=== PATIENT | female | born 1985 | race Caucasian/White ===

== ENCOUNTER → 2018-10-22 | Outpatient (CLI) | payer BC ==
[~2018-10-22] MED LIST: HYDR1CAP2 PO; HYDR1TAB PO; HYOS0.1216 PO; NAPR-243 PO; OXYC-12 PO; PHEN37.582; TRM50T PO
--- NOTE | 2018-10-22 12:53 | Diagnostic Imaging Report ---
PROCEDURE: US Gallbladder. TECHNIQUE: Multiple real-time grayscale images were obtained over the right upper quadrant in various projections. INDICATION: Right upper quadrant pain. Liver parenchyma is homogeneous with normal echotexture. Portal vein is patent with hepatopetal flow. Hepatic veins are patent. Right kidney measures 9.8 cm length and appears normal. Common duct did not appear to be dilated. Pancreas is obscured. There is no ascites. IMPRESSION: 5 mm polyp in the gallbladder. There is no wall thickening. Dictated by: Dictated on workstation # [id number]
== END ==
LOC: RAD 11:59
PROVIDERS: ATTEND Nurse Practitioner Family
DX: K81.9 Cholecystitis, unspecified (principal)
CPT/HCPCS: 76705

== ENCOUNTER 2018-10-26 17:37 | Emergency (ER) | payer BC ==
[~2018-10-26] VITALS: Ht 160 cm; Wt 77.1 kg
--- NOTE | 2018-10-26 17:57 | ED Abdominal Pain ---
General Chief Complaint: Abdominal/GI Problems Stated Complaint: R SIDED ABD PAIN Nursing Triage Note: pt arrives pov with c/o RUQ pain. pt was seen in [facility] thursday and had an ultrasound of gallbladder et was told to follow up with surgeon on the 02 of november. States a mass was found on her gallbladder. Pain is increasing and radaiting to side and shoulder. Eating irriates pain. Sepsis Screen: No Definite Risk Source of Information: Patient Exam Limitations: No Limitations History of Present Illness Date Seen by Provider: Oct 26, 2018 Time Seen by Provider: 17:55 Initial Comments To ER with right upper quadrant abdominal pain. She was seen at [facility] for this last week, had a bladder ultrasound showed a 5 mm polyp. She's had constant pain but this pain became worse about 2 days ago after eating salad with associated nausea. She is scheduled to see Dr. Farr on November 02. No fevers or chills. Timing/Duration: 1-2 Days Severity/Quality: Moderate Radiation: No Radiation Activities at Onset: None Associated Symptoms: Nausea/Vomiting Allergies and Home Medications Allergies Coded Allergies: Penicillins (Unverified Allergy, Mild, HIVES, 08/31/09) Home Medications Hyoscyamine Sulfate 0.125 Mg Tab, 1 EACH PO Q4HR Prescribed by: NELSON LINK on 10/12/14 1610 Patient Home Medication List Home Medication List Reviewed: Yes Review of Systems Review of Systems Constitutional: see HPI EENTM: No Symptoms Reported Respiratory: No Symptoms Reported Cardiovascular: No Symptoms Reported Gastrointestinal: See HPI, Abdominal Pain; Denies Constipated, Denies Diarrhea ; Nausea Genitourinary: No Symptoms Reported Musculoskeletal: no symptoms reported Skin: no symptoms reported Psychiatric/Neurological: No Symptoms Reported Endocrine: No Symptoms Reported Hematologic/Lymphatic: No Symptoms Reported (that with slight Thursday night) Past Yxzlwfd-Kjprki-Wocpsd Hx Patient Social History Recent Foreign Travel: No Contact w/Someone Who Travel: No Recent Infectious Disease Expo: No Past Medical History : No (on period now, tubal) Reproductive Disorders: No Physical Exam Vital Signs Vital Signs - First Documented 10/26/18 17:43 Temp 98.7 Pulse 86 Resp 18 B/P (MAP) 141/98 (112) Pulse Ox 100 O2 Delivery Room Air Capillary Refill : Less Than 3 Seconds Height/Weight/BMI Height: 5'3.00" Weight: 170lbs. oz. 77.047933km; BMI Method:Stated General Appearance: WD/WN, no apparent distress HEENT: PERRL/EOMI, normal ENT inspection Respiratory: no respiratory distress, no accessory muscle use Gastrointestinal: normal bowel sounds, soft, tenderness Extremities: normal range of motion, non-tender Neurologic/Psychiatric: alert, normal mood/affect, oriented x 3 Skin: normal color, warm/dry Progress/Results/Core Measures Results/Orders Lab Results Laboratory Tests Test 10/26/18 17:54 10/26/18 18:01 Range/Units White Blood Count 11.7 H 4.3-11.0 10^3/uL Red Blood Count 4.71 4.35-5.85 10^6/uL Hemoglobin 13.0 11.5-16.0 G/DL Hematocrit 39 35-52 % Mean Corpuscular Volume 82 80-99 FL Mean Corpuscular Hemoglobin 28 25-34 PG Mean Corpuscular Hemoglobin Concent 34 32-36 G/DL Red Cell Distribution Width 14.4 10.0-14.5 % Platelet Count 358 130-400 10^3/uL Mean Platelet Volume 9.5 7.4-10.4 FL Neutrophils (%) (Auto) 59 42-75 % Lymphocytes (%) (Auto) 29 12-44 % Monocytes (%) (Auto) 6 0-12 % Eosinophils (%) (Auto) 6 0-10 % Basophils (%) (Auto) 0 0-10 % Neutrophils # (Auto) 7.0 1.8-7.8 X 10^3 Lymphocytes # (Auto) 3.4 1.0-4.0 X 10^3 Monocytes # (Auto) 0.7 0.0-1.0 X 10^3 Eosinophils # (Auto) 0.7 H 0.0-0.3 10^3/uL Basophils # (Auto) 0.0 0.0-0.1 10^3/uL Sodium Level 142 135-145 MMOL/L Potassium Level 3.8 3.6-5.0 MMOL/L Chloride Level 109 H 98-107 MMOL/L Carbon Dioxide Level 22 21-32 MMOL/L Anion Gap 11 5-14 MMOL/L Blood Urea Nitrogen 8 7-18 MG/DL Creatinine 0.73 0.60-1.30 MG/DL Estimat Glomerular Filtration Rate > 60 BUN/Creatinine Ratio 11 Glucose Level 94 70-105 MG/DL Calcium Level 9.0 8.5-10.1 MG/DL Corrected Calcium 8.8 8.5-10.1 MG/DL Total Bilirubin 0.2 0.1-1.0 MG/DL Aspartate Amino Transf (AST/SGOT) 14 5-34 U/L Alanine Aminotransferase (ALT/SGPT) 20 0-55 U/L Alkaline Phosphatase 90 40-136 U/L Total Protein 7.3 6.4-8.2 GM/DL Albumin 4.3 3.2-4.5 GM/DL Lipase 23 8-78 U/L Urine Color YELLOW Urine Clarity SLIGHTLY CLOUDY Urine pH 7 5-9 Urine Specific Webb 1.005 L 1.016-1.022 Urine Protein NEGATIVE NEGATIVE Urine Glucose (UA) NEGATIVE NEGATIVE Urine Ketones NEGATIVE NEGATIVE Urine Nitrite NEGATIVE NEGATIVE Urine Bilirubin NEGATIVE NEGATIVE Urine Urobilinogen NORMAL NORMAL MG/DL Urine Leukocyte Esterase 2+ H NEGATIVE Urine RBC (Auto) 5+ H NEGATIVE Urine RBC 0-2 /HPF Urine WBC 5-10 H /HPF Urine Squamous Epithelial Cells 5-10 /HPF Urine Crystals NONE /LPF Urine Bacteria FEW H /HPF Urine Casts NONE /LPF Urine Mucus NEGATIVE /LPF Urine Culture Indicated YES My Orders Orders - DOLLY HERNANDEZ APRN Cbc With Automated Diff (10/26/18 17:50) Comprehensive Metabolic Panel (10/26/18 17:50) Ua Culture If Indicated (10/26/18 17:50) Urine Bedside (10/26/18 17:50) Lipase (10/26/18 17:50) Iv Heplock-Insert (Order) (10/26/18 17:50) Ketorolac Injection (Toradol Injection) (10/26/18 18:00) Fentanyl Injection (Sublimaze Injection (10/26/18 18:00) Ondansetron Injection (Zofran Injectio (10/26/18 18:00) Urine Culture (10/26/18 18:01) Medications Given in ED Current Medications Medications Dose Ordered Sig/Mary Route Start Time Stop Time Status Last Admin Dose Admin Fentanyl Citrate 50 mcg ONCE ONCE IVP 10/26/18 18:00 10/26/18 18:01 DC 10/26/18 18:06 50 MCG Ketorolac Tromethamine 15 mg ONCE ONCE IVP 10/26/18 18:00 10/26/18 18:01 DC 10/26/18 18:07 15 MG Ondansetron HCl 4 mg ONCE ONCE IVP 10/26/18 18:00 10/26/18 18:01 DC 10/26/18 18:06 4 MG Vital Signs/I&O 10/26/18 17:43 Temp 98.7 Pulse 86 Resp 18 B/P (MAP) 141/98 (112) Pulse Ox 100 O2 Delivery Room Air Blood Pressure Mean: 112 Departure Communication (Admissions) I spoke with Dr. Farr, plan to have patient on clear liquids only, pain medication, Levaquin for 6 days, see his office tomorrow. She should show up at 2 PM and he'll squeeze her into the clinic. Impression Primary Impression: Right upper quadrant abdominal pain Disposition: HOME, SELF-CARE Condition: Stable Departure-Patient Inst. Decision time for Depature: 17:57 Referrals: [facility] (PCP) Primary Care Physician GUTIERREZ JARAMILLO (Family) Primary Care Physician IRMA FARR DO Patient Instructions: No Instuctions Given Add. Discharge Instructions: 1. Clear liquids only for the next 2-3 days. No greasy spicy or fatty foods. A medication as needed. Nausea medication as needed. Antibiotics as directed. Go to Dr. Farr's office tomorrow at 2 PM and he will work you into his clinic scheduled tomorrow afternoon. He may have to sit in the waiting room and wait for a bit as he works you in. All discharge instructions reviewed with patient and/or family. Voiced understanding. Scripts Ondansetron (Ondansetron Odt) 4 Mg Tab.rapdis 4 MG PO Q4H PRN for NAUSEA/VOMITING-1ST LINE, #10 TAB Prov: DOLLY HERNANDEZ BIOMETRICS EXPERIMENTALIST 10/26/18 Hydrocodone/Acetaminophen ([place] 5-325 Tablet) 1 Each Tablet 1 TAB PO Q4-6HR for Pain MDD 10 TABS for 1 Day, #10 TAB Prov: DOLLY HERNANDEZ APRN 10/26/18 Levofloxacin (Levofloxacin) 500 Mg Tablet 500 MG PO DAILY, #5 TAB 0 Refills Prov: DOLLY HERNANDEZ APRN 10/26/18 DOLLY HERNANDEZ APRN Oct 26, 2018 17:57
[2018-10-26 18:00] LABS: BASOPHILS % (AUTO) 0 % (0-10); EOSINOPHILS # (AUTO) 0.7 10^3/uL (0.0-0.3); EOSINOPHILS % (AUTO) 6 % (0-10); HEMATOCRIT 39 % (35-52); LYMPHOCYTES # (AUTO) 3.4 X 10^3 (1.0-4.0); LYMPHOCYTES % (AUTO) 29 % (12-44); MEAN CORPUSCULAR HEMOGLOBIN 28 PG (25-34); MEAN CORPUSCULAR HGB CONC 34 G/DL (32-36); MEAN CORPUSCULAR VOLUME 82 FL (80-99); MEAN PLATELET VOLUME 9.5 FL (7.4-10.4); MONOCYTES # (AUTO) 0.7 X 10^3 (0.0-1.0); MONOCYTES % (AUTO) 6 % (0-12); NEUTROPHILS % (AUTO) 59 % (42-75); PLATELET COUNT 358 10^3/uL (130-400); RED CELL DISTRIBUTION WIDTH 14.4 % (10.0-14.5); WHITE BLOOD COUNT 11.7 10^3/uL (4.3-11.0)
[2018-10-26] MEDS ORDERED: fentaNYL INJECTION 100 MCG/2 ML AMP IVP ONE ×2 (18:00→19:00)
[2018-10-26] MEDS ORDERED: ONDANSETRON 4 MG/2 ML (SDV) Z0FRAN IVP ONE (18:00)
[2018-10-26] MEDS ORDERED: KETOROLAC 30 MG/ML VIAL IVP ONE (18:00)
[2018-10-26 18:07] LABS: BILIRUBIN,URINE NEGATIVE (NEGATIVE); CLARITY,URINE SLIGHTLY CLOUDY; COLOR,URINE YELLOW; GLUCOSE, URINE (UA) NEGATIVE (NEGATIVE); KETONES,URINE NEGATIVE (NEGATIVE); LEUKOCYTE ESTERASE ,URINE 2+ (NEGATIVE); NITRITE,URINE NEGATIVE (NEGATIVE); PH,URINE 7 (5-9); PROTEIN,URINE NEGATIVE (NEGATIVE); UROBILINOGEN,URINE NORMAL (NORMAL)
[2018-10-26 18:17] LABS: BACTERIA,URINE FEW /HPF; RBC,URINE 0-2 /HPF
[2018-10-26 18:20] LABS: ALANINE AMINOTRANSFERASE 20 U/L (0-55); ALBUMIN 4.3 GM/DL (3.2-4.5); ALKALINE PHOSPHATASE 90 U/L (40-136); BILIRUBIN,TOTAL 0.2 MG/DL (0.1-1.0); BUN/CREATININE RATIO 11; CARBON DIOXIDE 22 MMOL/L (21-32); CHLORIDE 109 MMOL/L (98-107); CREATININE SERUM 0.73 MG/DL (0.60-1.30); GFR ESTIMATED > 60; GLUCOSE 94 MG/DL (70-105); LIPASE 23 U/L (8-78); POTASSIUM 3.8 MMOL/L (3.6-5.0); SODIUM 142 MMOL/L (135-145); TOTAL PROTEIN 7.3 GM/DL (6.4-8.2)
[2018-10-26] MEDS ORDERED: ONDA4TAB11 PO (18:48)
[2018-10-26] MEDS ORDERED: HYDR-4226 PO (18:48)
[2018-10-26] MEDS ORDERED: LEVO500T80 PO (18:48)
[2018-10-26] MEDS ORDERED: LEVOFLOXACIN 500 MG TAB (LEVAQUIN) PO ONE (19:00)
[2018-10-26 19:10] VITALS: BP 149/98
== END 2018-10-26 19:10 | disposition home or self-care (01) ==
LOC: EDUNIT# 17:37 → ER 17:38
DX: R10.11 Right upper quadrant pain (principal); Z88.0 Allergy status to penicillin
CPT/HCPCS: 36415; 80053; 81000; 83690; 84703; 85025; 87088; 96374; 96375

== ENCOUNTER 2018-11-01 05:39 | Outpatient (CLI) | payer BC ==
[~2018-11-01] VITALS: Ht 160 cm; Wt 86.2 kg
[~2018-11-01 05:39] MED LIST changes: +HYDR-4226 PO; +LEVO500T80 PO; +ONDA4TAB11 PO
[2018-11-02] MEDS ORDERED: DOCU-143 PO (13:16)
[2018-11-02] MEDS ORDERED: ACHD5005 PO (13:16)
== END 2018-11-01 08:46 | disposition home or self-care (01) ==
LOC: PREOP 05:39
PROVIDERS: ATTEND Surgery
DX: Z01.818 Encounter for other preprocedural examination (principal)

== ENCOUNTER 2018-11-02 11:29 | Day surgery (SDC) | payer BC ==
[~2018-11-02] VITALS: Ht 160 cm; Wt 86.2 kg
[2018-11-02] VITALS (10 sets, daily range): BP systolic 120–148; BP diastolic 85–101
[2018-11-02] MEDS ORDERED: CLINDAMYCIN 600 MG/50 ML IVPB 50 ML IV ONE ×2 (11:42→11:45)
[2018-11-02] MEDS ORDERED: SCOPOLAMINE 1.5 MG (TRANSDERM-SCOP) PATCH ONE (11:42)
[2018-11-02] MEDS ORDERED: FAMOTIDINE 20MG/2ML IV (PEPCID) ONE (11:42)
[2018-11-02] MEDS ORDERED: ONDANSETRON 4 MG/2 ML (SDV) Z0FRAN ONE ×2 (11:42→11:47)
--- NOTE | 2018-11-02 11:44 | Progress Note-Pre Operative ---
Pre-Operative Progress Note H&P Reviewed The H&P was reviewed, patient examined and no changes noted. Date Seen by Provider: November 02, 2018 Time Seen by Provider: 11:44 Date H&P Reviewed: November 02, 2018 Time H&P Reviewed: 11:44 Pre-Operative Diagnosis: gallbladder polyp, ruq abd pain. IRMA FARR DO November 02, 2018 11:44
[2018-11-02] MEDS ORDERED: LIDOCAINE 1% INJ 20 ML 20 ML VIAL ONE (11:46)
[2018-11-02] MEDS ORDERED: BUP/EPI 0.5% 1:200,000 (SENSORCAINE) 30 ML VIAL ONE (11:46)
[2018-11-02] MEDS ORDERED: proPOfol 200 MG/20 ML (DIPRIVAN) VIAL IV ONE (11:47)
[2018-11-02] MEDS ORDERED: ROCURONIUM 10 MG/ML 5 ML SYRINGE IV ONE (11:47)
[2018-11-02] MEDS ORDERED: LIDOCAINE PF 2% 5 ML (XYLOCAINE) VIAL ONE (11:47)
[2018-11-02] MEDS ORDERED: MIDAZOLAM 2 MG/2 ML (VERSED) VIAL ONE (11:48)
[2018-11-02] MEDS ORDERED: fentaNYL INJECTION 100 MCG/2 ML AMP ONE (11:48)
[2018-11-02] MEDS: LACTATED RINGERS 1,000 ML IV PRN ×2 (11:55→12:49)
[2018-11-02] MEDS ORDERED: FAMOTIDINE 20MG/2ML IV (PEPCID) IV ONE (12:00)
[2018-11-02] MEDS ORDERED: ONDANSETRON 4 MG/2 ML (SDV) Z0FRAN IV ONE (12:00)
[2018-11-02] MEDS ORDERED: SCOPOLAMINE 1.5 MG (TRANSDERM-SCOP) PATCH TOP ONE (12:00)
[2018-11-02] MEDS ORDERED: HYDROmorphone 2 MG/ML VIAL (DILAUDID) ONE ×2 (12:40→13:37)
[2018-11-02] MEDS ORDERED: IOPAMIDOL 61% 30 ML (ISOVUE 300) VIAL IV ONE (12:57)
[2018-11-02] MEDS ORDERED: GLYCOPYRROLATE 0.2 MG/ML (ROBINUL) 2 ML VIAL ONE (12:58)
[2018-11-02] MEDS ORDERED: NEOSTIGMINE 1 MG/ML 5 ML SYRINGE ONE (12:58)
[2018-11-02] MEDS ORDERED: SUGAMMADEX 500 MG/5 ML VIAL (BRIDION) IV ONE (13:07)
[2018-11-02] MEDS ORDERED: SEVOFLURANE (ULTANE) 15 ML INHAL SOLN ONE (13:15)
--- NOTE | 2018-11-02 13:15 | Progress Note-Post Operative ---
Post-Operative Progess Note Surgeon (s)/County Attorney (s) Surgeon IRMA FARR DO County Attorney: Dr. Lujan Pre-Operative Diagnosis gallbladder polyp, ruq abd pain. Post-Operative Diagnosis same Procedure & Operative Findings Date of Procedure 11/02/18 Procedure Performed/Findings lap sascha c ioc Anesthesia Type general Estimated Blood Loss Estimated blood loss (mL): min Specimens/Packing Specimens Removed gallbladder RIMA FARR DO November 02, 2018 13:15
[2018-11-02] MEDS ORDERED: ACHD5005 PO (13:16)
[2018-11-02] MEDS ORDERED: DOCU-143 PO (13:16)
--- NOTE | 2018-11-02 13:19 | Discharge Inst-Simple/Standard ---
Discharge Inst-Standard Discharge Medications New, Converted or Re-Newed RX: RX on Chart Patient Instructions/Follow Up Plan of Care/Instructions/FU: 2 weeks Annie Activity as Tolerated: No Discharge Diet: Regular Diet Other Inst to Patient Follow up Appt: Make appointment for 2 weeks. Instructions: No lifting greater than 10 pounds. No strenuous activity. May shower in 24 hours, no tub bath or soaking. Use incentive spirometer at home as directed. No Smoking Skin/Wound Care: You have special glue over incisions it will fall off on its own. Symptoms to Report: Appetite Changes, Extremity Discoloration, Numbness/Tingling, Swelling Increased , Bleeding Excessive, Eyesight Changes, Pain Increased, Urine Color Change, Constipation(Persistent), Fever over 101 degree F, Pain/Pressure in chest, Urinating Difficulty, Cough Up/Vomit Blood, Heart Beat Irreg/Pounding, Pain/ Pressure in jaw, Vaginal Bleeding Increase, Cramps in feet or legs, Lightheadedness, Pain/Pressure in shoulder, Diarrhea(Persistent), Memory Changes Suddenly, Questions/Concerns, Weight gain consecutive days, Dizziness/ Fainting, Nausea/Vomiting, Shortness of Breath, Weight gain over 2 pounds. If eyes or skin turn yellow notify physician. If questions or concerns contact your physician Or seek help at emergency department. IRMA FARR DO November 02, 2018 13:19
[2018-11-02] MEDS ORDERED: ONDANSETRON 4 MG/2 ML (SDV) Z0FRAN IVP PRN (13:45)
[2018-11-02] MEDS ORDERED: HYDROmorphone 2 MG/ML VIAL (DILAUDID) IV ONE (13:45)
--- NOTE | 2018-11-02 13:52 | Anesthesia-General Post-Op ---
General Patient Condition Mental Status/LOC: Same as Preop Cardiovascular: Satisfactory Nausea/Vomiting: Absent Respiratory: Satisfactory Pain: Controlled Complications: Absent Post Op Complications Complications None Follow Up Care/Instructions Patient Instructions None needed. Anesthesia/Patient Condition Patient Condition Patient is doing well, no complaints, stable vital signs, no apparent adverse anesthesia problems. No complications reported per nursing. SERGE VAZQUEZ CRNA November 02, 2018 13:52
[2018-11-02] MEDS ORDERED: HYDROcodone/APAP 5 MG/325 MG (LORTAB) TAB PO ONE (14:45)
--- NOTE | 2018-11-02 15:47 | Diagnostic Imaging Report ---
INDICATION: Fluoroscopy for intraoperative cholangiogram. FINDINGS: Fluoroscopy was provided in the OR during intraoperative cholangiogram. 29 seconds of fluoroscopy was utilized. Images demonstrate contrast being injected into the cystic duct remnant. Intrahepatic and extrahepatic bile ducts are normal caliber. No filling defects are seen. Contrast extends into the duodenum. IMPRESSION: Fluoroscopy for intraoperative cholangiogram. Dictated by: Dictated on workstation # [id number]
--- NOTE | 2018-11-02 23:56 | OPERATIVE REPORT ---
DATE OF SERVICE: 11/02/2018 PREOPERATIVE DIAGNOSES: Right upper quadrant abdominal pain, gallbladder polyp. POSTOPERATIVE DIAGNOSES: Right upper quadrant abdominal pain, gallbladder polyp. PROCEDURE: Laparoscopic cholecystectomy with intraoperative cholangiogram. SURGEON: Irma Valencia DO DATA PROCESSING SYSTEMS PROJECT PLANNER: Dr. Lujan, assisted in retraction, dissection and closure. ANESTHESIA: General. ESTIMATED BLOOD LOSS: Minimal. COMPLICATIONS: None. INDICATIONS: The patient is a 33-year-old female who has been having right upper quadrant abdominal pain, nausea, vomiting. Gallbladder ultrasound demonstrated a gallbladder polyp. The patient was explained risks and benefits of procedure and wished to proceed with procedure. Consent was signed in the chart. DESCRIPTION OF PROCEDURE: The patient was taken to the operating suite. She was prepped and draped in sterile fashion. Surgical pause was performed. Local anesthetic was infiltrated before incisions were made. A 12 mm incision was made just above the umbilicus. Dissection was taken down to the fascia, which was then scored, grasped with Jacinta's and elevated. The abdomen was then entered. A 0 Vicryl was placed in a [id number] fashion for closure at the end the case. A balloon trocar was inserted into the abdomen and pneumoperitoneum was achieved. Under direct visualization of the laparoscope, a 5 mm trocar was placed in the subxiphoid region and two 5 mm trocars were placed in the right upper quadrant. Gallbladder was grasped and elevated. The cystic duct and cystic artery were then dissected out. Clips were placed on the proximal and distal portion of the cystic artery. Clip was placed on the distal portion of the cystic duct. The duct was then partially transected. Arrow catheter was inserted into the duct and cholangiogram was performed. There were no filling defects. Contrast made its way into the duodenum without difficulty. The catheter was then removed. Clips were placed on the proximal portion of the cystic duct, and the duct and the artery were then completely transected. Hook cautery was used to dissect the gallbladder from the gallbladder fossa achieving hemostasis. Once removed, it was placed in an Endobag and removed through 12 mm trocar site. Abdomen was irrigated and suctioned with copious amounts of irrigation. The 0 Vicryl placed at the beginning of the case was then tied closing the 12 mm fascial defect. The trocars were removed. The skin was then closed using 4-0 Monocryl in subcuticular fashion. The abdomen was then washed and dried and Skin Affix was placed over the incisions. The patient tolerated procedure well without complications. She was taken to recovery room in stable condition. Job ID: [id number] DocumentID: [id number] Dictated Date: 11/02/2018 19:23:23 Product Support Representative Date: 11/02/2018 23:56:08 Dictated By: IRMA VALENCIA DO
== END 2018-11-02 15:40 | disposition home or self-care (01) ==
LOC: SDC 11:29
PROVIDERS: ATTEND Surgery
DX: K81.1 Chronic cholecystitis (principal); F41.9 Anxiety disorder, unspecified; F32.9 Major depressive disorder, single episode, unspecified; F17.210 Nicotine dependence, cigarettes, uncomplicated; E66.9 Obesity, unspecified; Z68.33 Body mass index [BMI] 33.0-33.9, adult; Z79.891 Long term (current) use of opiate analgesic
CPT/HCPCS: 84703; 87081; 94664

== ENCOUNTER → 2019-07-21 | Outpatient (CLI) | payer BC ==
[~2019-07-21] MED LIST changes: +ACHD5005 PO; +DOCU-143 PO
--- NOTE | 2019-07-21 16:07 | Diagnostic Imaging Report ---
EXAM: Right breast ultrasound INDICATION: Right breast pain The diagnostic mammogram performed earlier today failed to show any sign of malignancy or of an abnormality to account for the patient's pain. The ultrasound examination of the right breast is unremarkable for a solid mass that would suggest malignancy. There is no sign of an abscess either. There did appear to be a small 1.1 x 0.8 cm lymph node in the right axilla. This lymph node has a generally benign appearance. IMPRESSION: 1. There is no evidence for malignancy and there is no acute abnormality identified. 2. The patient should have her six-month follow-up mammogram of both breasts for continued evaluation of the benign-appearing calcifications in each breast. 3. These results were discussed with Torres Jarrell APRN. ACR category 3 ACR BI-RADS Category 3: Probably benign findings. Result letter will be mailed to the patient. Note: At least 10% of breast cancer is not imaged by mammography. Dictated by: Dictated on workstation # [id number]
--- NOTE | 2019-07-22 08:03 | Diagnostic Imaging Report ---
Bilateral diagnostic mammogram Indication: Right breast pain. This is the patient's baseline study. At this time she does complain of pain in the right breast, particularly in the retroareolar region and in the upper outer quadrant and right axilla. The fibroglandular tissue in both breasts is heterogeneously dense. This does limit the sensitivity of this exam. There are small groups of microcalcifications in each breast. Both of these are located at posterior depth. The calcifications in the right breast are medial and seen both inferiorly and superiorly. The calcifications in the left breast are in the inferomedial aspect of the breast. Magnification views of the calcifications show they have a generally benign appearance. However as there are no prior studies available for comparison, I would recommend that a 6 month followup exam of both breasts be performed to confirm that the calcifications are stable. There is no primary or secondary sign of malignancy noted. There is no abnormality to account for the patient's right breast pain. Impression: 1. There is no evidence for malignancy or for an acute abnormality of the right breast. A right breast ultrasound is pending. 2. A six-month followup mammogram of both breasts would be recommended for continued evaluation of the benign-appearing calcifications in both breasts. ACR BI-RADS Category 0: Incomplete. (Needs additional imaging evaluation). Result letter will be mailed to the patient. Note: At least 10% of breast cancer is not imaged by mammography. Dictated by: Dictated on workstation # [id number]
== END ==
LOC: RAD 12:31
PROVIDERS: ATTEND Registered Nurse
DX: N64.4 Mastodynia (principal)
CPT/HCPCS: 76641; 77066